=== PATIENT | female | born 1955 | race Caucasian/White ===

== ENCOUNTER 2017-11-18 17:25 | Emergency (ER) | payer OTHER ==
[~2017-11-18] VITALS: Ht 165.1 cm; Wt 69.5 kg
[~2017-11-18 17:25] MED LIST: FLEXERIL10 MG PO; ULTRAM50 MG PO
[2017-11-18] MEDS ORDERED: ULTRAM50 MG PO (21:15)
[2017-11-18 21:50] VITALS: BP 111/55
== END 2017-11-18 21:51 | disposition home or self-care (01) ==
LOC: EME 17:25
DX: S16.1XXA Strain of muscle, fascia and tendon at neck level, initial encounter (principal); V49.50XA Passenger injured in collision with unspecified motor vehicles in traffic accident, initial encounter; Y92.411 Interstate highway as the place of occurrence of the external cause; F17.200 Nicotine dependence, unspecified, uncomplicated; Z88.1 Allergy status to other antibiotic agents; Z88.8 Allergy status to other drugs, medicaments and biological substances
CPT/HCPCS: 72050